=== PATIENT | male | born 2000 | race African-American/Black ===

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

== ENCOUNTER 2019-05-06 08:13 | Emergency (ER) | payer BC ==
[~2019-05-06] VITALS: Ht 177.8 cm; Wt 52.4 kg
[~2019-05-06 08:13] MED LIST: ALBU2.5V8 INH; AZIT1PAC9 PO; BENZ100C PO
[2019-05-06 08:15] VITALS: BP 168/93
--- NOTE | 2019-05-06 08:30 | PHYS DOC ---
Past Medical History Past Medical History: No Pertinent History Past Surgical History: No Surgical History Alcohol Use: None Drug Use: None Adult General Chief Complaint Chief Complaint: BACK PAIN OR INJURY HPI HPI Patient is a 19 year old who presents to the ER with left lower back pain has been ongoing for 3 hours. The patient states he was trying to release stress and screaming at other people and after he was screaming he felt pain in the left lower portion of his back. Rates his pain 3 out of 10 in severity and sharp. Pain increases when he moves around. Has not performed any interventions prior to arrival. Review of Systems Review of Systems Constitutional: Denies fever or chills [] Eyes: Denies change in visual acuity, redness, or eye pain [] HENT: Denies nasal congestion or sore throat [] Respiratory: Denies cough or shortness of breath [] Cardiovascular: No additional information not addressed in HPI [] GI: Denies abdominal pain, nausea, vomiting, bloody stools or diarrhea [] : Denies dysuria or hematuria [] Musculoskeletal: Reports back pain Integument: Denies rash or skin lesions [] Neurologic: Denies headache, focal weakness or sensory changes [] Endocrine: Denies polyuria or polydipsia [] Complete systems were reviewed and found to be within normal limits, except as documented in this note. Allergies Allergies Allergies Coded Allergies Type Severity Reaction Last Updated Verified No Known Drug Allergies 02/09/14 No Physical Exam Physical Exam Constitutional: Well developed, well nourished, no acute distress, non-toxic appearance. [] HENT: Normocephalic, atraumatic, bilateral external ears normal, oropharynx moist, no oral exudates, nose normal. [] Eyes: PERRLA, EOMI, conjunctiva normal, no discharge. [] Neck: Normal range of motion, no tenderness, supple, no stridor. [] Cardiovascular:Heart rate regular rhythm, no murmur [] Lungs & Thorax: Bilateral breath sounds clear to auscultation [] Abdomen: Bowel sounds normal, soft, no tenderness, no masses, no pulsatile masses. [] Skin: Warm, dry, no erythema, no rash. [] Back: Tenderness to left lower area of back on palpation. [] Extremities: No tenderness, no cyanosis, no clubbing, ROM intact, no edema. [] Neurologic: Alert and oriented X 3, normal motor function, normal sensory funct ion, no focal deficits noted. [] Psychologic: Affect normal, judgement normal, mood normal. [] EKG EKG [] Radiology/Procedures Radiology/Procedures [] Course & Med Decision Making Course & Med Decision Making Pertinent Labs and Imaging studies reviewed. (See chart for details) Discussed with patient that this is likely muscular skeletal nature. Offered patient a muscle relaxer however he states his pain is only 3 out of 10 and he does not want the side effects. He states that he wants a work note, and was wanting to make sure that it wasn't something serious. Also discussed nonpharmacological interventions that he can perform at home also discussed he can take ibuprofen for anti-inflammatory effects. Dragon Disclaimer Dragon Disclaimer This electronic medical record was generated, in whole or in part, using a voice recognition dictation system. Departure Departure Impression: Primary Impression: Musculoskeletal back pain Disposition: HOME, SELF-CARE Condition: STABLE Referrals: STEPHEN MORRISON (PCP) Patient Instructions: Musculoskeletal Pain Additional Instructions: Thank you for visiting [facility]. We appreciate you trusting us with your care. If any additional problems come up don't hesitate to return to visit us. Please follow up with your primary care provider so they can plan additional care if needed and know about the problem that you had. If symptoms worsen come back to the Emergency Department. Any concerning symptoms that start such as chest pain, shortness of air, weakness or numbness on one side of the body, running high fevers or any other concerning symptoms return to the ER. CHRIS SOLORIO APRN May 06, 2019 08:30
== END 2019-05-06 08:40 | disposition home or self-care (01) ==
LOC: ER 08:13
DX: M54.5 Low back pain (principal)
CPT/HCPCS: 99281